=== PATIENT | male | born 1955 | race Caucasian/White ===

== ENCOUNTER 2020-04-02 20:15 | Emergency (ER) | payer OTHER ==
[2020-04-02 20:30] VITALS: TEMP 98.6; BMI 23.5
--- OUTSIDE RECORDS SUMMARY | 2020-04-02 20:33 | XMS ---
:1955 Author Organization [facility] Support Name Relationship Address Phone [facility] Unavailable [address] [place] [address] JUSTIN SULLIVAN SISTER [address] [place] [address] Re-disclosure Warning The records that you are about to access may contain information from federally- assisted alcohol or drug abuse programs. If such information is present, then the following federally mandated warning applies: This information has been disclosed to you from records protected by federal confidentiality rules (42 CFR part 2). The federal rules prohibit you from making any further disclosure of this information unless further disclosure is expressly permitted by the written consent of the person to whom it pertains or as otherwise permitted by 42 CFR part 2. A general authorization for the release of medical or other information is NOT sufficient for this purpose. The Federal rules restrict any use of the information to criminally investigate or prosecute any alcohol or drug abuse patient.The records that you are about to access may contain highly sensitive health information, the redisclosure of which is protected by Article 27-F of the [facility] Public Health law. If you continue you may haveaccess to information: Regarding HIV / AIDS; Provided by facilities licensed or operated by the [facility] Office of Mental Health; or Provided by the [facility] Office for People With Developmental Disabilities. If such information is present, then the following [facility] mandated warning applies: This information has been disclosed to you from confidential records which are protected by state law. State law prohibits you from making any further disclosure of this information without the specific written consent of the person to whom it pertains, or as otherwise permitted by law. Any unauthorized further disclosure in violation of state law may result in a fine or halfway sentence or both. A general authorization for the release of medical or other information is NOT sufficient authorization for further disclosure. Insurance Providers Payer name Policy type Policy ID Covered Covered constitution party's Policy P ainsley / Coverage constitution party ID relationship to [employer] orm[employer] type rollins PENDING [id number] SP [id number] WC/NF ONLY
--- NOTE | 2020-04-02 20:37 | PDOC ---
History of Present Illness - General Chief Complaint: Injury Stated Complaint: FELL FROM LOADING DOCK INJURING LEFT ELBOW, HIP AN Time Seen by Provider: 04/02/20 20:26 - History of Present Illness Initial Comments: 04/02/20 20:48 This 64-year-old man with a history of HTN presents after falling from loading dock at work a few hours prior to presentation. Patient states that he was working after hours and fell approximately 4 feet when he attempted to climb down from a loading dock (area was not lighted and he thought he was on steps leading downward. He missed stairs and fell directly downwards onto concrete floor). No LOC; patient states that he believes he impacted left elbow/left pelvis area on the floor. He also thinks he may have a sustained a glancing blow from onto the right side of his head. Patient was able to stand without assistance and him drove himself home. He denies visual changes/balance difficulties/word recall or slurred speech/facial droop or extremity weakness. He has no headache no neck pain, chest pain/shortness of breath, abdominal pain. He has discomfort in the left elbow with bleeding from a laceration in the area. He also has a small laceration and discomfort in the anterior left pelvis. Unknown last tetanus prophylaxis immunization PMH: HTN/polyp surgery Medications as noted below Allergy: Keflex (dysphoria) Non-smoker/no daily alcohol or other recreational drug use Past History - Medical History Allergies/Adverse Reactions: Allergies Allergy/AdvReac Type Severity Reaction Status Date / Time cephalexin [From Keflex] Allergy Verified 04/02/20 20:18 Home Medications: Ambulatory Orders Amox-Tr/K Cl [Augmentin - 875Mg Tablet] 1 tab PO BID #10 tablet 04/02/20 Aspirin 81 mg PO DAILY 04/02/20 Losartan Potassium DAILY 04/02/20 COPD: No HTN: Yes - Psycho-Social/Smoking History Smoking History: Never smoked Have you smoked in the past 12 months: No Information on smoking cessation initiated: No - Substance Abuse Hx (Audit-C & DAST Scrn) How often the patient has a drink containing alcohol: Never Score: In Men: 4 or > Positive; In Women: 3 or > Positive: 0 Screen Result (Pos requires Nsg. Audit-10AR): Negative In the last yr the pt used illegal drug/Rx for NonMed reason: No Score: Yes response is considered Positive: 0 Screen Result (Positive result requires Nsg. DAST-10): Negative Review of Systems - Review of Systems Able to Perform ROS?: Yes Comments:: 12 point review of systems is negative except for what is noted in the history of present illness *Physical Exam - Vital Signs Last Vital Signs Temp Pulse Resp BP Pulse Ox 98.6 F 68 16 178/96 H 100 04/02/20 20:20 04/02/20 20:20 04/02/20 20:20 04/02/20 20:20 04/02/20 20:20 - Physical Exam GENERAL: Adult male, alert and oriented X 3 in no acute distress HEAD: Mild tenderness R temporal area without edema, contusion or laceration EYES: PERRLA, EOMI, sclera anicteric, conjunctiva clear. ENT: Ears normal, nares patent, oropharynx clear without exudates. Moist mucous membranes. NECK: Normal range of motion, supple without lymphadenopathy, JVD, or masses. LUNGS: Breath sounds equal, clear to auscultation bilaterally. No wheezes, and no crackles. HEART:Regular rate and rhythm, normal S1 and S2 without murmur, rub or gallop. ABDOMEN:.normal bowel sounds No guarding,tenderness or rebound.No masses No distention mild tenderness and 0.5 cm nonbleeding superficial lac, left anterior superior iliac spine area no other pelvic tenderness, pelvic rock negative EXTREMITIES: Left upper extremity- 1.5 cm full thickness lac olecranon process; mild surrounding tenderness Remainder of extremity exam is normal NEUROLOGICAL: Cranial nerves II through XII grossly intact. Normal speech. No focal neurological deficits. MUSCULOSKELETAL: Back non-tender to palpation, no CVA tenderness SKIN: Warm, Dry, normal turgor, no rashes or lesions noted. Procedures - Laceration/Wound Repair Left Elbow Wound Length: to 2.5 cm Wound Explored: clean Wound's Depth, Shape: linear Irrigated w/ Saline: Yes Betadine Prep: No (Hibiclens/Rthanol) Anesthesia: 1% Lidocaine Amount of Anesthetic (ccs): 2 Wound Repaired With: Sutures Suture Size/Type: 4:0 Number of Sutures: 4 Sterile Dressing Applied: Yes Splint Applied: No Sling Applied: No Progress: Left elbow prepped using Hibiclens/ethanol solution and sterilely draped. 1.5 mL of 1% lidocaine infiltrated into the wound for local anesthetic. Wound irrigated with 40 mL of sterile normal saline. Wound edges approximated and closed with 4 interrupted sutures of 4-0 nylon. Bacitracin applied to the wound. Patient tolerated procedure well ED Progress Note - Progress Note Progress Note: , left elbow x-ray and pelvis x-ray performed. Pelvis x-ray preliminary interpretation: No evidence of fracture Left elbow x-ray interpreted by Dr. Malone of the radiology staff: No evidence of fracture or dislocation but significant amount of gas seen in soft tissues, possibly intra articular. Case discussed with Dr. Diamond of the orthopedic staff: Although air is probably in the bursa, if the air is intra-articular the patient needs an operating room cleanout of the joint. Left elbow CT will be performed to fully rule out intra-articular air. Noncontrast head CT and left upper extremity CT interpreted by Dr. Malone: No evidence of fracture or intracranial acute process present in noncontrast head CT. Left upper extremity CT reveals air and bursa; no evidence of fracture/dislocation or intra-articular air Patient was discharged with instructions regarding closed head injury (no strenuous activity for the next 2 days, head elevation, acetaminophen only for the next 24 hours). He will be taking Augmentin 875/125 twice a day for 5 days. Sutures should be removed on Thursday, April 11. Discharge - Discharge Information Problems reviewed: Yes Clinical Impression/Diagnosis: Closed head injury Qualifiers: Encounter type: sequela Qualified Code(s): S09.90XS - Unspecified injury of head, sequela Laceration of left elbow Qualifiers: Encounter type: initial encounter Qualified Code(s): S51.012A - Laceration without foreign body of left elbow, initial encounter Contusion of pelvis Qualifiers: Encounter type: initial encounter Qualified Code(s): S30.0XXA - Contusion of lower back and pelvis, initial encounter Condition: Stable Disposition: HOME - Additional Discharge Information Prescriptions: Amox-Tr/K Cl [Augmentin - 875Mg Tablet] 1 tab PO BID #10 tablet - Follow up/Referral Referrals: Sloan Lentz [Primary Care Provider] - - Patient Discharge Instructions Patient Printed Discharge Instructions: How to Care for a Laceration After Repair, DI for Closed Head Injury Additional Instructions: Rest; avoid strenuous activity for the next 1 to 2 days No work until , 04/05 Keep head elevated tonight on extra pillow Tylenol as needed for pain for the first 24 hours, then use your usual analgesics as needed Return to ER if you have severe headache, nausea/vomiting, extreme sleepiness Keep dressing on left elbow in place for 48 hours, as dry as possible After dressing is removed, leave open to air but can use Band-Aid as needed Augmentin 875/125 twice a day for 5 days; take with food Have sutures removed on Thursday, April 11 Return here or see your doctor if wound becomes swollen, more painful or red followup with your doctor within 1 week - Post Discharge Activity Work/Back to School Note: Back to Work
[2020-04-02] MEDS ORDERED: DIPHTH,PERTUSS(ACELL),TET 0.5 ML DISP.SYRIN IM ONE ×2 (20:39→20:40)
[2020-04-02 21:44] VITALS: BP 158/94; PULSE 62
[2020-04-02] MEDS ORDERED: AMOX TR/POT CLAV 875MG/125MG TABLETS (FP) PO ONE (22:17)
[2020-04-02] MEDS ORDERED: AMOX TR/POT CLAV 875MG/125MG TABLETS (FP) ONE (22:25)
== END 2020-04-02 22:31 | disposition home or self-care (01) ==
LOC: FER 20:15
PROC: 0HQEXZZ Repair Left Lower Arm Skin, External Approach (ICD-10-PCS; principal; 2020-04-02)
PROC: 3E0234Z Introduction of Serum, Toxoid and Vaccine into Muscle, Percutaneous Approach (ICD-10-PCS; 2020-04-02)
DX: S09.90XA Unspecified injury of head, initial encounter (principal); S51.012A Laceration without foreign body of left elbow, initial encounter; S30.0XXA Contusion of lower back and pelvis, initial encounter
CPT/HCPCS: 70450-TC; 72170-TC-FY; 73070-TC-LT-FY; 73200-TC-RT; 90715; 99285-25